=== PATIENT | male | born 1990 | race Two or more races ===

== ENCOUNTER → 2021-07-18 08:49 | Outpatient (BNVA) | payer OTHER, SELFPAY | PROVIDERS: Visit Provider Physician Assistant Medical | DX: S63.641A Sprain of metacarpophalangeal joint of right thumb, initial encounter (principal); X50.0XXA Overexertion from strenuous movement or load, initial encounter | CPT/HCPCS: 29125; 99203 ==

== ENCOUNTER → 2021-07-21 10:56 | Outpatient (BNVA) | payer OTHER, SELFPAY | PROVIDERS: Visit Provider Physician Assistant Medical | DX: S63.621A Sprain of interphalangeal joint of right thumb, initial encounter (principal); S63.641A Sprain of metacarpophalangeal joint of right thumb, initial encounter; X58.XXXA Exposure to other specified factors, initial encounter | CPT/HCPCS: 99213 ==

== ENCOUNTER → 2021-07-28 15:18 | Outpatient (BNVA) | payer OTHER, SELFPAY | PROVIDERS: Visit Provider Physician Assistant Medical | DX: S63.621D Sprain of interphalangeal joint of right thumb, subsequent encounter (principal); S63.641D Sprain of metacarpophalangeal joint of right thumb, subsequent encounter; X58.XXXD Exposure to other specified factors, subsequent encounter | CPT/HCPCS: 99213 ==

== ENCOUNTER → 2021-08-06 10:56 | Outpatient (BNVA) | payer OTHER, SELFPAY | PROVIDERS: Visit Provider Physician Assistant Medical | DX: M65.841 Other synovitis and tenosynovitis, right hand (principal) | CPT/HCPCS: 99213 ==

== ENCOUNTER 2021-08-12 13:00 | Outpatient (RCR) | payer OTHER, SELFPAY ==
--- NOTE | 2021-07-23 14:40 | MHC.OT.OEV ---
[address] [phone] F: [phone] Occupational Therapy Evaluation Diagnosis: Right hand sprain and tendinitis Date of Onset: 07/14/21 Attending Provider: Vivi Mcdaniels PA-C Prescribed Treatment: Eval and Florentin MORAES Follow Up Appointment: 07/28/21 History of Current Condition: 30 yo male was at work, lifting large logs of paper into a machine and felt a sharp pull in his right wrist. 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 He was given anti-inflammatories that gave some relief, but was then referred to [facility] for further assessment. He is now wearing pre-krystal thumb spica orthosis. 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 w/ opening jars and containers Sleep: Somewhat improved w/ medications, orthosis and warm water bath Driving: Occasional onset of right thumb tingling Pain Assessment Pain Score: 6 Pain Scale Used: Pain Location and Description: 6/10 resting pain in right dorsal D1 MP, occasionally radiates to wrist Aggravating Factors: Twisting, gripping, lifting Alleviating Factors: Anti-inflammatories (Naproxen) Warm water bath Thumb spice orthosis Skin and Soft Tissue Assessment Comments: WNL Nerve assessment Ulnar Nerve: Not Tested Median Nerve: Not Tested Radial Nerve: Not Tested Sensory Assessment Comments: Reports tingling on dorsal thumb with driving Edema Assessment Upper Extremity: WNL Special Tests Comments: (-) Finklestein's AROM(PROM) Strength Cervical Cervical Flexion: Cervical Extension: Cervical Lateral Flexion: Cervical Rotation: Comments: WFL Shoulder Flexion: Extension: Abduction: Internal Rotation: External Rotation: Comments: WFL Flexion: Extension: Abduction: Internal Rotation: External Rotation: Comments: Elbow Flexion: Extension: Pronation: Supination: Comments: WFL Flexion: Extension: Pronation: Supination: Comments: Wrist Flexion: R 50 L 76 Extension: R 70 L 72 Ulnar Deviation: R 50 L 50 Radial Deviation: R 25 L 20 Comments: Flexion: Extension: R 4/5 L 4+/5 Ulnar Deviation: Radial Deviation: Comments: Thumb Thumb CMC Flexion: Thumb MCP Flexion: R 50 L 76 Thumb IP Flexion: R 56 L 76 Radial Abduction: Palmar Abduction: Morovis (Kapandji 0-10): R 7/10 L 10/10 Comments: Resistant to passive flexion stretch Digits Index MCP: PIP: DIP: Long MCP: PIP: DIP: Ring MCP: PIP: DIP: Small MCP: PIP: DIP: Comments: Right hand intrinsic tightness Gross Grasp: R 55 L 80 Lateral Pinch: R 20 L 3 Two-Point Pinch: R 5 L 8 Three-Jaw Juventino: R 8 L 16 Comments: Patient Education Primary Language: Serbian 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 Patient demonstrates Patient verbalizes Barriers to Learning: None Readiness for Learning: Accepting Who was educated? Patient Comments: Plan of Care Assessment: 30 yo right hand dominant male presents to OT with right thumb pain after lifting heavy roll of paper at work about 1.5 weeks ago. He has been wearing soft thumb spica orthosis and reports comfort w/ support and medications, but continues to have decreased strength and movement. He will benefit from continued therapy services to progress strength, range and overall functional use of right thumb, hand and wrist w/ everyday activities. STG Duration: 1 week Short Term Goals: Ind w/ orthosis wear as needed for comfort and support Pt to report decreased pain at nighttime Right gross grasp 60lb <2/10 resting pain Ind w/ HEP LTG Duration: 4 weeks Nursing Home Goals: Wean from orthosis w/ light and moderate daily activities Right gross grasp >75lb Pain free right thumb at rest Ind w/ progression of wrist and hand strengthening Quickdash score <25 pts Frequency and Duration: The patient will be seen 2x/wk for 4 weeks Treatment Plan: Therapeutic Exercise Therapeutic Activity Home Exercise Program Splinting Patient Education Edema Control ADL Training Ultrasound Iontophoresis Paraffin Fluidotherapy MHP Cold Packs Joint Mobilization Soft Tissue Mobilization Kinesiotaping Electronically Signed By: Dona Kimball OTR/L Reviewed/agree with student documentation: N/A Therapist: Please sign and return to therapist, Thank you for your referral.
--- NOTE | 2021-08-12 13:20 | MHC.OT.DC ---
[address] [phone] F: [phone] Occupational Therapy Discharge Note Provider: Vivi Mcdaniels PA-C Diagnosis: Right hand sprain and tendinitis Date of Evaluation: 07/23/21 Date of Discharge: 08/12/21 Treatments to Date: 5 Discharge Status: Achieved Goals Independent with HEP Discharge Summary: Cody is now about two months s/p right wrist sprain at work. He is now pain free at all times since last week and has not been wearing orthosis. All therapy goals met and patient feels ready to return back to full work duties. Electronically Signed By: Dona Kimball OTR/L Please Sign and return to therapist, thank you for your referral.
== END 2021-08-12 13:20 | disposition home or self-care (01) ==
LOC: HO.OT 13:00
PROVIDERS: Visit Provider Physician Assistant Medical
DX: S63.601D Unspecified sprain of right thumb, subsequent encounter (principal)
CPT/HCPCS: 97033; 97035; 97110; 97165; J1885

== ENCOUNTER → 2021-08-12 13:35 | Outpatient (BNVA) | payer OTHER, SELFPAY | PROVIDERS: Visit Provider Physician Assistant Medical | DX: S63.601D Unspecified sprain of right thumb, subsequent encounter (principal); X58.XXXD Exposure to other specified factors, subsequent encounter | CPT/HCPCS: 99213 ==